=== PATIENT | male | born 1960 | race Caucasian/White ===

== ENCOUNTER 2017-11-25 16:26 | Emergency (ER) | payer MEDICAID ==
[~2017-11-25] VITALS: Ht 190.5 cm; Wt 79.4 kg
[2017-11-25 16:43] VITALS: BP 120/58
== END 2017-11-25 19:28 | disposition left against medical advice (07) ==
LOC: ER 16:36
DX: M79.604 Pain in right leg (principal); Z53.21 Procedure and treatment not carried out due to patient leaving prior to being seen by health care provider